=== PATIENT | male | born 1970 | race Caucasian/White ===

== ENCOUNTER 2017-03-07 05:50 | Day surgery (SDC) | payer OTHER ==
[~2017-03-07 05:50] MED LIST: KETO10TA2 PO; NORVASC10 MG; ULTRAM50 MG PO; VASOTEC20 M1
== END 2017-03-07 09:22 | disposition home or self-care (01) ==
LOC: AMB-ENDOS 05:50
DX: K64.2 Third degree hemorrhoids (principal); K92.1 Melena

== ENCOUNTER 2017-08-08 12:14 | Emergency (ER) | payer OTHER ==
[~2017-08-08] VITALS: Ht 165.1 cm; Wt 81.6 kg
[2017-08-08] MEDS ORDERED: VASOTEC10 MG NGT (15:24)
== END 2017-08-08 16:02 | disposition home or self-care (01) ==
LOC: ER 12:14
DX: I10 Essential (primary) hypertension (principal); R55 Syncope and collapse

== ENCOUNTER 2017-08-12 07:50 | Outpatient (CLI) | payer OTHER ==
[~2017-08-12 07:50] MED LIST changes: +VASOTEC10 MG NGT
== END 2017-08-12 09:29 | disposition home or self-care (01) ==
LOC: LAB 07:50
DX: I10 Essential (primary) hypertension (principal); Z12.5 Encounter for screening for malignant neoplasm of prostate; E78.2 Mixed hyperlipidemia

== ENCOUNTER 2018-06-16 14:15 | Outpatient (CLI) | payer OTHER | END 2018-06-16 16:44 | disposition home or self-care (01) | LOC: LAB 14:15 | DX: Z11.3 Encounter for screening for infections with a predominantly sexual mode of transmission (principal) ==

== ENCOUNTER 2019-02-18 13:01 | Emergency (ER) | payer OTHER ==
[~2019-02-18] VITALS: Ht 165.1 cm; Wt 79.4 kg
== END 2019-02-18 18:06 | disposition home or self-care (01) ==
LOC: ER 13:01
DX: R10.31 Right lower quadrant pain (principal)

== ENCOUNTER → 2019-04-09 12:10 | Outpatient (CLI) | payer OTHER | END | disposition home or self-care (01) | LOC: LAB 12:10 | DX: J11.1 Influenza due to unidentified influenza virus with other respiratory manifestations (principal) ==

== ENCOUNTER 2019-06-28 08:40 | Emergency (ER) | payer OTHER ==
[~2019-06-28] VITALS: Ht 165.1 cm; Wt 81.6 kg
== END 2019-06-28 16:07 | disposition home or self-care (01) ==
LOC: ER 08:40
DX: R10.13 Epigastric pain (principal); R10.31 Right lower quadrant pain

== ENCOUNTER → 2019-11-30 | Outpatient (CLI) | payer OTHER | END | disposition home or self-care (01) | LOC: PPH VACUNA | DX: Z23 Encounter for immunization (principal) ==

== ENCOUNTER → 2020-01-04 | Emergency (ER) | payer OTHER ==
[~2020-01-04] VITALS: Ht 165.1 cm; Wt 83.9 kg
== END | disposition home or self-care (01) ==
LOC: ER 08:55
DX: S62.634A Displaced fracture of distal phalanx of right ring finger, initial encounter for closed fracture (principal); W23.0XXA Caught, crushed, jammed, or pinched between moving objects, initial encounter; Y93.89 Activity, other specified; Y92.69 Other specified industrial and construction area as the place of occurrence of the external cause; Y99.8 Other external cause status

== ENCOUNTER 2020-08-22 15:48 | Outpatient (CLI) | payer OTHER | END 2020-08-22 15:55 | disposition home or self-care (01) | LOC: RAD 15:48 | PROVIDERS: ATTEND Orthopaedic Surgery | DX: M25.552 Pain in left hip (principal) ==

== ENCOUNTER 2020-09-20 06:41 | Emergency (ER) | payer OTHER ==
[~2020-09-20] VITALS: Ht 165.1 cm; Wt 79.4 kg
[2020-09-20] MEDS ORDERED: NORVASC (07:04)
[2020-09-20] MEDS ORDERED: CYCLOBENZAPRINE10 MG PO (11:52)
[2020-09-20] MEDS ORDERED: MEDROLPACK PO (11:52)
[2020-09-20] MEDS ORDERED: DICLOFENAC POTA50 MG PO (11:52)
[2020-09-20] MEDS ORDERED: ULTRAM50 MG PO (11:52)
== END 2020-09-20 13:31 | disposition home or self-care (01) ==
LOC: ER 06:41
DX: M51.36 Other intervertebral disc degeneration, lumbar region (principal); M48.061 Spinal stenosis, lumbar region without neurogenic claudication; M54.5 Low back pain

== ENCOUNTER → 2020-10-05 | Outpatient (CLI) | payer OTHER ==
[~2020-10-05] MED LIST changes: +CYCLOBENZAPRINE10 MG PO; +DICLOFENAC POTA50 MG PO; +MEDROLPACK PO; +NORVASC
== END | disposition home or self-care (01) ==
LOC: LAB 11:12
PROVIDERS: ATTEND Emergency Medicine Pediatric Emergency Medicine
DX: Z03.818 Encounter for observation for suspected exposure to other biological agents ruled out (principal)

== ENCOUNTER 2020-12-06 08:00 | Outpatient (CLI) | payer OTHER | END 2020-12-06 08:30 | disposition home or self-care (01) | LOC: PPH VACUNA 08:00 | PROVIDERS: ATTEND Emergency Medicine Pediatric Emergency Medicine | DX: Z23 Encounter for immunization (principal) ==

== ENCOUNTER → 2020-12-16 11:35 | Outpatient (CLI) | payer OTHER | END | disposition home or self-care (01) | LOC: LAB 11:35 | PROVIDERS: ATTEND Obstetrics & Gynecology | DX: D64.89 Other specified anemias (principal); N40.1 Benign prostatic hyperplasia with lower urinary tract symptoms; R89.1 Abnormal level of hormones in specimens from other organs, systems and tissues; E29.0 Testicular hyperfunction; E03.8 Other specified hypothyroidism; E78.49 Other hyperlipidemia; M81.6 Localized osteoporosis [Lequesne]; M83.3 Adult osteomalacia due to malnutrition ==

== ENCOUNTER 2021-05-02 17:15 | Outpatient (CLI) | payer OTHER | END 2021-05-02 17:25 | disposition home or self-care (01) | LOC: LAB 17:15 | PROVIDERS: ATTEND Anesthesiology Pain Medicine | DX: J03.90 Acute tonsillitis, unspecified (principal); A49.02 Methicillin resistant Staphylococcus aureus infection, unspecified site; Z20.818 Contact with and (suspected) exposure to other bacterial communicable diseases ==

== ENCOUNTER 2021-07-03 09:23 | Outpatient (CLI) | payer OTHER | END 2021-07-03 09:30 | disposition home or self-care (01) | LOC: LAB 09:23 | PROVIDERS: ATTEND Obstetrics & Gynecology | DX: N40.1 Benign prostatic hyperplasia with lower urinary tract symptoms (principal); R89.1 Abnormal level of hormones in specimens from other organs, systems and tissues; E29.0 Testicular hyperfunction; E03.8 Other specified hypothyroidism; D64.89 Other specified anemias; E55.9 Vitamin D deficiency, unspecified; E78.49 Other hyperlipidemia; M81.6 Localized osteoporosis [Lequesne] ==

== ENCOUNTER 2021-08-20 15:33 | Outpatient (CLI) | payer OTHER | END 2021-08-20 15:37 | disposition home or self-care (01) | LOC: LAB 15:33 | PROVIDERS: ATTEND Anesthesiology | DX: N64.89 Other specified disorders of breast (principal); N40.1 Benign prostatic hyperplasia with lower urinary tract symptoms; E78.49 Other hyperlipidemia ==

== ENCOUNTER → 2021-08-25 08:28 | Outpatient (CLI) | payer OTHER | END | disposition home or self-care (01) | LOC: LAB 08:28 | PROVIDERS: ATTEND Internal Medicine | DX: Z12.11 Encounter for screening for malignant neoplasm of colon (principal); I10 Essential (primary) hypertension; M54.50 Low back pain, unspecified; Z01.810 Encounter for preprocedural cardiovascular examination ==

== ENCOUNTER 2021-08-31 16:04 | Outpatient (CLI) | payer OTHER | END 2021-08-31 16:06 | disposition home or self-care (01) | LOC: LAB 16:04 | PROVIDERS: ATTEND Surgery | DX: Z20.822 Contact with and (suspected) exposure to COVID-19 (principal) ==

== ENCOUNTER 2021-09-11 15:34 | Outpatient (CLI) | payer OTHER | END 2021-09-11 15:36 | disposition home or self-care (01) | LOC: LAB 15:34 | PROVIDERS: ATTEND Anesthesiology Pain Medicine | DX: U09.9 Post COVID-19 condition, unspecified (principal) ==

== ENCOUNTER 2021-11-13 08:00 | Outpatient (CLI) | payer OTHER | END 2021-11-13 08:05 | disposition home or self-care (01) | LOC: PPH VACUNA 08:00 | PROVIDERS: ATTEND Emergency Medicine Pediatric Emergency Medicine | DX: Z23 Encounter for immunization (principal) ==

== ENCOUNTER 2021-12-08 07:39 | Outpatient (CLI) | payer OTHER | END 2021-12-08 07:40 | disposition home or self-care (01) | LOC: LAB 07:39 | PROVIDERS: ATTEND Internal Medicine | DX: I10 Essential (primary) hypertension (principal); M54.50 Low back pain, unspecified; Z01.810 Encounter for preprocedural cardiovascular examination ==

== ENCOUNTER 2022-05-29 05:45 | Day surgery (SDC) | payer OTHER ==
[2022-05-30] MEDS ORDERED: COZAAR100 MG PO (11:06)
[2022-05-30] MEDS ORDERED: CHILDREN'S ASPI81 MG (11:06)
[2022-05-30] MEDS ORDERED: TOPROL XL50 M1 PO (11:06)
== END 2022-05-29 10:10 | disposition home or self-care (01) ==
LOC: AMB-ENDOS 05:45
PROVIDERS: ATTEND Colon & Rectal Surgery
DX: Z86.010 Personal history of colon polyps (principal); R19.5 Other fecal abnormalities; K57.30 Diverticulosis of large intestine without perforation or abscess without bleeding; K64.0 First degree hemorrhoids

== ENCOUNTER 2022-05-30 10:59 | Emergency (ER) | payer OTHER ==
[~2022-05-30] VITALS: Ht 165.1 cm; Wt 82.6 kg
[2022-05-30] MEDS ORDERED: TOPROL XL50 M1 PO (11:06)
[2022-05-30] MEDS ORDERED: CHILDREN'S ASPI81 MG (11:06)
[2022-05-30] MEDS ORDERED: COZAAR100 MG PO (11:06)
== END 2022-05-30 16:02 | disposition home or self-care (01) ==
LOC: ER 10:59
DX: I10 Essential (primary) hypertension (principal)

== ENCOUNTER 2022-06-11 08:36 | Outpatient (CLI) | payer OTHER ==
[~2022-06-11 08:36] MED LIST changes: +CHILDREN'S ASPI81 MG; +COZAAR100 MG PO; +TOPROL XL50 M1 PO
== END 2022-06-11 09:01 | disposition home or self-care (01) ==
LOC: NUCLEAR 08:36
PROVIDERS: ATTEND Internal Medicine
DX: I11.9 Hypertensive heart disease without heart failure (principal); I34.89 Other nonrheumatic mitral valve disorders

== ENCOUNTER 2022-06-24 16:51 | Outpatient (CLI) | payer OTHER | END 2022-06-24 16:54 | disposition home or self-care (01) | LOC: LAB 16:51 | PROVIDERS: ATTEND Internal Medicine | DX: I10 Essential (primary) hypertension (principal); M54.59 Other low back pain ==

== ENCOUNTER 2022-07-15 12:00 | Outpatient (CLI) | payer OTHER | END 2022-07-15 12:07 | disposition home or self-care (01) | LOC: LAB 12:00 | DX: U07.1 COVID-19 (principal); B34.1 Enterovirus infection, unspecified ==

== ENCOUNTER → 2022-07-16 07:26 | Outpatient (CLI) | payer OTHER | END | disposition home or self-care (01) | LOC: NUCLEAR 07:00 | PROVIDERS: ATTEND Internal Medicine | DX: I11.0 Hypertensive heart disease with heart failure (principal); I50.22 Chronic systolic (congestive) heart failure ==

== ENCOUNTER 2022-07-20 08:21 | Outpatient (CLI) | payer OTHER | END 2022-07-20 08:24 | disposition home or self-care (01) | LOC: LAB 08:21 | PROVIDERS: ATTEND Internal Medicine | DX: I50.9 Heart failure, unspecified (principal); I20.8 Other forms of angina pectoris; I11.9 Hypertensive heart disease without heart failure; E78.2 Mixed hyperlipidemia; I25.10 Atherosclerotic heart disease of native coronary artery without angina pectoris ==

== ENCOUNTER 2022-08-03 09:05 | Outpatient (CLI) | payer OTHER | END 2022-08-03 09:13 | disposition home or self-care (01) | LOC: LAB 09:05 | PROVIDERS: ATTEND Anesthesiology | DX: I10 Essential (primary) hypertension (principal); R51.0 Headache with orthostatic component, not elsewhere classified; R06.02 Shortness of breath ==

== ENCOUNTER 2022-10-12 08:45 | Outpatient (CLI) | payer OTHER | END 2022-10-12 08:46 | disposition home or self-care (01) | LOC: LAB 08:45 | PROVIDERS: ATTEND Internal Medicine | DX: I10 Essential (primary) hypertension (principal); M54.59 Other low back pain; Z12.11 Encounter for screening for malignant neoplasm of colon; N40.1 Benign prostatic hyperplasia with lower urinary tract symptoms ==

== ENCOUNTER 2022-11-23 10:30 | Outpatient (CLI) | payer OTHER | END 2022-11-23 10:37 | disposition home or self-care (01) | LOC: LAB 10:30 | PROVIDERS: ATTEND Internal Medicine Cardiovascular Disease | DX: I11.9 Hypertensive heart disease without heart failure (principal); E78.2 Mixed hyperlipidemia; E11.9 Type 2 diabetes mellitus without complications; E03.9 Hypothyroidism, unspecified ==

== ENCOUNTER 2022-12-19 11:20 | Emergency (ER) | payer OTHER ==
[~2022-12-19] VITALS: Ht 165.1 cm; Wt 81.6 kg
== END 2022-12-19 12:24 | disposition home or self-care (01) ==
LOC: ER 11:20
DX: M54.16 Radiculopathy, lumbar region (principal); I10 Essential (primary) hypertension

== ENCOUNTER 2023-01-03 14:06 | Outpatient (CLI) | payer OTHER | END 2023-01-03 14:15 | disposition home or self-care (01) | LOC: RAD 14:06 | PROVIDERS: ATTEND Orthopaedic Surgery Orthopaedic Surgery of the Spine | DX: R22.31 Localized swelling, mass and lump, right upper limb (principal); M51.37 Other intervertebral disc degeneration, lumbosacral region ==

== ENCOUNTER 2023-01-07 09:25 | Emergency (ER) | payer OTHER ==
[~2023-01-07] VITALS: Ht 165.1 cm; Wt 83.9 kg
[2023-01-07] MEDS ORDERED: NORVASC2.5 M1 PO (09:39)
[2023-01-07] MEDS ORDERED: EZALLOR SPRINKLE5 MG PO (09:40)
[2023-01-07 10:35] LABS: HEMATOCRIT 42.6 % (39.0-48.0); HEMOGLOBIN 14.2 g/dL (13-16.00); MEAN CELL VOLUME 89.8 fL (80.0-100.00); MEAN CORPUSCULAR HGB CONC 33.4 g/dl (32.0-36.0); PLATELET COUNT 276 K/uL (150-450); RED BLOOD COUNT 4.74 M/uL (4.00-6.00); RED CELL DISTRIBUTION WIDTH 13.1 % (11.5-14.5)
[2023-01-07 11:07] LABS: INR 0.99; PARTIAL THROMBOPLASTIN TIME 27.9 SECONDS (22.0-34.0); PROTHROMBIN TIME 10.4 SECONDS (9.0-11.5)
[2023-01-07 11:25] LABS: ALBUMIN 4.1 gm/dL (3.4-5.0); BILIRUBIN TOTAL 0.41 mg/dL (0.3-1.2); CALCIUM 9.8 mg/dL (8.5-10.1); GFR 78.47; GLOBULINA 3.5 G/DL (2.4-3.5); POTASSIUM 3.45 mEq/L (3.5-5.1); TOTAL PROTEIN 7.6 gm/dL (6.4-8.2)
== END 2023-01-08 14:25 | disposition home or self-care (01) ==
LOC: ER 09:25
PROVIDERS: Emergency Medicine
DX: R41.82 Altered mental status, unspecified (principal); F41.0 Panic disorder [episodic paroxysmal anxiety]
CPT/HCPCS: 70552

== ENCOUNTER → 2023-02-08 08:12 | Outpatient (CLI) | payer OTHER ==
[~2023-02-08 08:12] MED LIST changes: +EZALLOR SPRINKLE5 MG PO; +NORVASC2.5 M1 PO
[2023-02-08 09:26] LABS: PH,URINE 6.5 (5.0-8.0); URINE APPEARANCE Clear; URINE BILIRRUBIN Negative (NEGATIVE); URINE BLOOD Negative; URINE COLOR Yellow; URINE GLUCOSE Negative (NEGATIVE); URINE LEUKOCYTE Negative; URINE NITRATE Negative; URINE PROTEIN Negative (NEGATIVE); URINE UROBILINOGEN 0.2 E.U./dl
[2023-02-08 09:27] LABS: HEMATOCRIT 41.5 % (39.0-48.0); HEMOGLOBIN 14.3 g/dL (13-16.00); MEAN CELL VOLUME 88.2 fL (80.0-100.00); MEAN CORPUSCULAR HEMOGLOBIN 30.4 pg (27.00-32.0); MEAN CORPUSCULAR HGB CONC 34.4 g/dl (32.0-36.0); PLATELET COUNT 250 K/uL (150-450); RED BLOOD COUNT 4.71 M/uL (4.00-6.00); RED CELL DISTRIBUTION WIDTH 13.5 % (11.5-14.5)
[2023-02-08 09:32] LABS: URINE BACTERIA 31.4 uL (0.0-1933); URINE EPITHELIAL CELLS 1.9 uL (0.0-38.8); URINE RBC 2.2 uL (0.0-20.8); URINE WBC 2.1 uL (0.0-23.2)
[2023-02-08 09:51] LABS: ALBUMIN 3.6 gm/dL (3.4-5.0); BILIRUBIN TOTAL 0.54 mg/dL (0.3-1.2); CALCIUM 9.1 mg/dL (8.5-10.1); CHOL HDL RATIO 3.2 (0-5.0); CREATININE SERUM 0.97 mg/dL (0.70-1.30); GFR 81.27; GLOBULINA 3.2 G/DL (2.4-3.5); POTASSIUM 3.47 mEq/L (3.5-5.1); TOTAL PROTEIN 6.8 gm/dL (6.4-8.2)
== END | disposition home or self-care (01) ==
LOC: LAB 08:12
PROVIDERS: ATTEND Emergency Medicine Pediatric Emergency Medicine
DX: I10 Essential (primary) hypertension (principal); M54.59 Other low back pain; E03.9 Hypothyroidism, unspecified; E78.9 Disorder of lipoprotein metabolism, unspecified

== ENCOUNTER 2023-03-21 08:20 | Emergency (ER) | payer OTHER ==
[~2023-03-21] VITALS: Ht 165.1 cm; Wt 81.6 kg
[2023-03-21 10:10] LABS: HEMATOCRIT 39.8 % (39.0-48.0); HEMOGLOBIN 13.5 g/dL (13-16.00); MEAN CELL VOLUME 89.5 fL (80.0-100.00); MEAN CORPUSCULAR HEMOGLOBIN 30.4 pg (27.00-32.0); PLATELET COUNT 300 K/uL (150-450); RED BLOOD COUNT 4.45 M/uL (4.00-6.00); RED CELL DISTRIBUTION WIDTH 13.1 % (11.5-14.5)
== END 2023-03-21 11:56 | disposition home or self-care (01) ==
LOC: ER 08:20
PROVIDERS: General Practice
DX: J00 Acute nasopharyngitis [common cold] (principal); Z20.822 Contact with and (suspected) exposure to COVID-19; I10 Essential (primary) hypertension

== ENCOUNTER → 2023-04-04 | Outpatient (CLI) | payer OTHER ==
[2023-04-04 07:55] LABS: HEMATOCRIT 40.8 % (39.0-48.0); HEMOGLOBIN 13.8 g/dL (13-16.00); MEAN CELL VOLUME 90.5 fL (80.0-100.00); MEAN CORPUSCULAR HEMOGLOBIN 30.6 pg (27.00-32.0); MEAN CORPUSCULAR HGB CONC 33.8 g/dl (32.0-36.0); PLATELET COUNT 292 K/uL (150-450); RED BLOOD COUNT 4.51 M/uL (4.00-6.00); RED CELL DISTRIBUTION WIDTH 13.3 % (11.5-14.5)
[2023-04-04 08:32] LABS: ALBUMIN 3.6 gm/dL (3.4-5.0); BILIRUBIN TOTAL 0.45 mg/dL (0.3-1.2); CALCIUM 9.5 mg/dL (8.5-10.1); CHOL HDL RATIO 3.9 (0-5.0); GFR 78.47; GLOBULINA 3.6 G/DL (2.4-3.5); POTASSIUM 3.61 mEq/L (3.5-5.1); TOTAL PROTEIN 7.2 gm/dL (6.4-8.2)
== END | disposition home or self-care (01) ==
LOC: LAB 06:54
PROVIDERS: ATTEND Surgery
DX: E78.5 Hyperlipidemia, unspecified (principal); I10 Essential (primary) hypertension

== ENCOUNTER 2023-06-04 10:20 | Outpatient (CLI) | payer OTHER | END 2023-06-04 10:30 | disposition home or self-care (01) | LOC: PPH VACUNA 10:20 | PROVIDERS: ATTEND Emergency Medicine Pediatric Emergency Medicine | DX: Z23 Encounter for immunization (principal) | CPT/HCPCS: 90653; G0008 ==

== ENCOUNTER 2023-10-02 15:35 | Outpatient (CLI) | payer OTHER ==
[2023-10-02 15:57] LABS: HEMATOCRIT 39.1 % (39.0-48.0); HEMOGLOBIN 13.3 g/dL (13-16.00); MEAN CELL VOLUME 87.1 fL (80.0-100.00); MEAN CORPUSCULAR HEMOGLOBIN 29.5 pg (27.00-32.0); MEAN CORPUSCULAR HGB CONC 33.9 g/dl (32.0-36.0); PLATELET COUNT 275 K/uL (150-450); RED BLOOD COUNT 4.49 M/uL (4.00-6.00); RED CELL DISTRIBUTION WIDTH 13.8 % (11.5-14.5)
[2023-10-02 16:34] LABS: ALBUMIN 3.9 gm/dL (3.4-5.0); BILIRUBIN TOTAL 0.4 mg/dL (0.3-1.2); CALCIUM 9.6 mg/dL (8.5-10.1); CHOL HDL RATIO 3.2 (0-5.0); CREATININE SERUM 1.02 mg/dL (0.70-1.30); GFR 76.4; GLOBULINA 3.5 G/DL (2.4-3.5); POTASSIUM 3.39 mEq/L (3.5-5.1); TOTAL PROTEIN 7.4 gm/dL (6.4-8.2); TSH 1.85 uIU/mL (0.358-3.74)
== END 2023-10-02 15:41 | disposition home or self-care (01) ==
LOC: LAB 15:35
PROVIDERS: ATTEND Internal Medicine Cardiovascular Disease
DX: I11.9 Hypertensive heart disease without heart failure (principal); E11.9 Type 2 diabetes mellitus without complications; E78.2 Mixed hyperlipidemia; E03.9 Hypothyroidism, unspecified

== ENCOUNTER 2023-11-25 15:10 | Outpatient (CLI) | payer OTHER ==
[~2023-11-25 15:10] MED LIST changes: +COZAAR50 MG PO; +LOSARTAN-HCTZ1 EAC1; +TOPROL XL25 M1
== END 2023-11-25 15:13 | disposition home or self-care (01) ==
LOC: LAB 15:10
DX: B19.10 Unspecified viral hepatitis B without hepatic coma (principal)

== ENCOUNTER 2024-01-19 06:03 | Outpatient (CLI) | payer OTHER ==
[2024-01-19 07:30] LABS: HEMATOCRIT 41.1 % (39.0-48.0); HEMOGLOBIN 14.1 g/dL (13-16.00); MEAN CELL VOLUME 87.1 fL (80.0-100.00); MEAN CORPUSCULAR HEMOGLOBIN 29.8 pg (27.00-32.0); MEAN CORPUSCULAR HGB CONC 34.2 g/dl (32.0-36.0); PLATELET COUNT 254 K/uL (150-450); RED BLOOD COUNT 4.72 M/uL (4.00-6.00); RED CELL DISTRIBUTION WIDTH 13.4 % (11.5-14.5)
[2024-01-19 07:31] LABS: PH,URINE 5.5 (5.0-8.0); URINE APPEARANCE Clear; URINE BILIRRUBIN Negative (NEGATIVE); URINE BLOOD Negative; URINE COLOR Yellow; URINE GLUCOSE Negative (NEGATIVE); URINE KETONE Negative (NEGATIVE); URINE LEUKOCYTE Negative; URINE NITRATE Negative; URINE PROTEIN Negative (NEGATIVE); URINE UROBILINOGEN 0.2 E.U./dl
[2024-01-19 07:36] LABS: URINE EPITHELIAL CELLS 0.9 uL (0.0-38.8); URINE RBC 0.6 uL (0.0-20.8)
[2024-01-19 08:12] LABS: ALBUMIN 3.8 gm/dL (3.4-5.0); BILIRUBIN TOTAL 0.33 mg/dL (0.3-1.2); CALCIUM 9.3 mg/dL (8.5-10.1); CHOL HDL RATIO 2.9 (0-5.0); CREATININE SERUM 0.9 mg/dL (0.70-1.30); GFR 88.27; GLOBULINA 3.2 G/DL (2.4-3.5); POTASSIUM 3.41 mEq/L (3.5-5.1)
== END 2024-01-19 06:04 | disposition home or self-care (01) ==
LOC: LAB 06:03
PROVIDERS: ATTEND Internal Medicine
DX: I10 Essential (primary) hypertension (principal); E03.9 Hypothyroidism, unspecified; E78.9 Disorder of lipoprotein metabolism, unspecified

== ENCOUNTER 2024-01-22 04:00 | Outpatient (CLI) | payer OTHER | END 2024-01-22 04:15 | disposition home or self-care (01) | LOC: PPH VACUNA 04:00 | PROVIDERS: ATTEND Emergency Medicine Pediatric Emergency Medicine | DX: Z23 Encounter for immunization (principal) ==

== ENCOUNTER → 2024-06-11 06:05 | Outpatient (CLI) | payer OTHER ==
[2024-06-11 06:54] LABS: HEMATOCRIT 41.4 % (39.0-48.0); MEAN CORPUSCULAR HEMOGLOBIN 29.4 pg (27.00-32.0); MEAN CORPUSCULAR HGB CONC 33.8 g/dl (32.0-36.0); PLATELET COUNT 261 K/uL (150-450); RED BLOOD COUNT 4.76 M/uL (4.00-6.00); RED CELL DISTRIBUTION WIDTH 13.5 % (11.5-14.5)
[2024-06-11 06:57] LABS: URINE APPEARANCE Clear; URINE BILIRRUBIN Negative (NEGATIVE); URINE BLOOD Negative; URINE COLOR Yellow; URINE GLUCOSE Negative (NEGATIVE); URINE KETONE Negative (NEGATIVE); URINE LEUKOCYTE Negative; URINE NITRATE Negative; URINE PROTEIN Negative (NEGATIVE); URINE UROBILINOGEN 0.2 E.U./dl
[2024-06-11 06:58] LABS: URINE BACTERIA 2.4 uL (0.0-1933); URINE EPITHELIAL CELLS 0.7 uL (0.0-38.8); URINE RBC 1.9 uL (0.0-20.8); URINE WBC 1.4 uL (0.0-23.2)
[2024-06-11 07:49] LABS: ALBUMIN 3.8 gm/dL (3.4-5.0); BILIRUBIN TOTAL 0.57 mg/dL (0.3-1.2); CALCIUM 9.3 mg/dL (8.5-10.1); CHOL HDL RATIO 2.9 (0-5.0); CREATININE SERUM 0.93 mg/dL (0.70-1.30); GFR 84.99; GLOBULINA 3.4 G/DL (2.4-3.5); POTASSIUM 3.83 mEq/L (3.5-5.1); PROSTATIC SPECIFIC ANTIGEN 3.47 NG/ML (0.010-4.00); T4 TOTAL 8.11 UG/DL (4.5-12.1); TOTAL PROTEIN 7.2 gm/dL (6.4-8.2); TSH 2.11 uIU/mL (0.358-3.74)
== END | disposition home or self-care (01) ==
LOC: LAB 06-09 10:34
PROVIDERS: ATTEND Internal Medicine
DX: I50.9 Heart failure, unspecified (principal); I11.9 Hypertensive heart disease without heart failure; E11.9 Type 2 diabetes mellitus without complications; E78.2 Mixed hyperlipidemia; E03.9 Hypothyroidism, unspecified; E78.9 Disorder of lipoprotein metabolism, unspecified; G47.30 Sleep apnea, unspecified; R06.81 Apnea, not elsewhere classified

== ENCOUNTER 2024-06-16 09:58 | Outpatient (CLI) | payer OTHER | END 2024-06-16 13:31 | disposition home or self-care (01) | LOC: MRI 09:58 | PROVIDERS: ATTEND Orthopaedic Surgery Orthopaedic Surgery of the Spine | DX: M50.00 Cervical disc disorder with myelopathy, unspecified cervical region (principal) | CPT/HCPCS: 72141 ==

== ENCOUNTER → 2024-10-07 06:03 | Outpatient (CLI) | payer OTHER ==
[2024-10-07 07:38] LABS: BASO % 0.6 % (0.1-1.2); EOS # 0.22 (0.04-0.54); EOS % 3.3 % (0.7-7.0); LYMPH # 1.83 (1.18-3.74); LYMPH % 27.7 % (19.3-53.1); MEAN PLATELET VOLUME 8.90 fl (9.4-12.4); MONO # 0.51 (0.24-0.82); MONO % 7.7 % (4.7-12.5); NEUT # 3.96 (1.56-6.13); NEUT % 59.9 % (34.0-71.1); RED CELL DISTRIBUTION WIDTH 12.7 % (11.6-14.4)
[2024-10-07 07:48] LABS: URINE APPEARANCE Clear; URINE BILIRRUBIN Negative (NEGATIVE); URINE BLOOD Negative; URINE COLOR Yellow; URINE GLUCOSE Negative (NEGATIVE); URINE KETONE Trace (NEGATIVE); URINE LEUKOCYTE Negative; URINE NITRATE Negative; URINE PROTEIN Trace (NEGATIVE); URINE UROBILINOGEN 1.0 E.U./dl
[2024-10-07 07:51] LABS: URINE BACTERIA 8.3 uL (0.0-1933)
[2024-10-07 08:00] LABS: URINE CAST 0.00 uL (0.0-1.40); URINE EPITHELIAL CELLS 1.2 uL (0.0-38.8); URINE RBC 1.1 uL (0.0-20.8); URINE WBC 1.6 uL (0.0-23.2)
[2024-10-07 08:28] LABS: ALT/SGPT 34.0 U/L (12-78); AST/SGOT 20.0 U/L (15-37); BILIRUBIN TOTAL 0.41 mg/dL (0.3-1.2); BUN CREA RATIO 27.0 (7.0-25.0); CHOL HDL RATIO 2.3 (0-5.0); CREATININE SERUM 0.96 mg/dL (0.70-1.30); GFR 81.62; GLOBULINA 3.1 G/DL (2.4-3.5); GLUCOSE FASTING 100.0 mg/dL (65-100); HDL 57.0 mg/dl (40-60); LDL 50.0 mg/dl (0-130); OSMOLALITY SERUM 288.0 MOSM/KG (275-295); T3 UPTAKE 32.0 % (33-40); T4 TOTAL 7.91 UG/DL (4.5-12.1); TSH 2.39 uIU/mL (0.358-3.74); VLDL 21.0 (0-39)
[2024-10-07 14:04] LABS: T3 TOTAL 1.78 ng/ml (0.846-2.02); VITAMIN D3 25 HYDROXY 58.68 ng/ml (30-120)
== END | disposition home or self-care (01) ==
LOC: LAB 06:03
PROVIDERS: ATTEND Internal Medicine
DX: I10 Essential (primary) hypertension (principal); E03.9 Hypothyroidism, unspecified; E78.9 Disorder of lipoprotein metabolism, unspecified; R06.81 Apnea, not elsewhere classified; I11.9 Hypertensive heart disease without heart failure; E78.2 Mixed hyperlipidemia

== ENCOUNTER 2024-11-18 10:16 | Emergency (ER) | payer OTHER ==
[~2024-11-18] VITALS: Ht 165.1 cm; Wt 83.9 kg
[2024-11-18 10:38] VITALS: BP 122/67; O2SAT 98
[2024-11-18 10:45] LABS: BASO % 0.6 % (0.1-1.2); EOS # 0.13 (0.04-0.54); EOS % 1.8 % (0.7-7.0); LYMPH # 2.06 (1.18-3.74); LYMPH % 28.7 % (19.3-53.1); MEAN PLATELET VOLUME 8.50 fl (9.4-12.4); MONO # 0.48 (0.24-0.82); MONO % 6.7 % (4.7-12.5); NEUT # 4.44 (1.56-6.13); NEUT % 61.9 % (34.0-71.1); RED CELL DISTRIBUTION WIDTH 12.8 % (11.6-14.4)
[2024-11-18 11:22] LABS: ALT/SGPT 30.0 U/L (12-78); AST/SGOT 24.0 U/L (15-37); BILIRUBIN TOTAL 0.54 mg/dL (0.3-1.2); BUN CREA RATIO 26.0 (7.0-25.0); CREATININE SERUM 0.87 mg/dL (0.70-1.30); GFR 91.44; GLOBULINA 3.3 G/DL (2.4-3.5); GLUCOSE FASTING 110.0 mg/dL (65-100); OSMOLALITY SERUM 287.0 MOSM/KG (275-295)
== END 2024-11-18 13:46 | disposition home or self-care (01) ==
LOC: ER 10:24
PROVIDERS: Emergency Medicine
DX: R42 Dizziness and giddiness (principal); I10 Essential (primary) hypertension

== ENCOUNTER 2024-12-23 11:05 | Outpatient (CLI) | payer OTHER | END 2024-12-23 11:06 | disposition home or self-care (01) | LOC: NUCLEAR 11:05 | PROVIDERS: ATTEND Internal Medicine | DX: I11.9 Hypertensive heart disease without heart failure (principal) ==

== ENCOUNTER → 2025-01-07 06:30 | Outpatient (CLI) | payer OTHER ==
[2025-01-07 07:33] LABS: BASO % 0.6 % (0.1-1.2); EOS # 0.19 (0.04-0.54); EOS % 2.8 % (0.7-7.0); LYMPH # 1.95 (1.18-3.74); LYMPH % 28.5 % (19.3-53.1); MEAN PLATELET VOLUME 8.70 fl (9.4-12.4); MONO # 0.56 (0.24-0.82); MONO % 8.2 % (4.7-12.5); NEUT # 4.09 (1.56-6.13); NEUT % 59.6 % (34.0-71.1); RED CELL DISTRIBUTION WIDTH 12.6 % (11.6-14.4)
[2025-01-07 07:41] LABS: URINE APPEARANCE Clear; URINE BILIRRUBIN Negative (NEGATIVE); URINE BLOOD Negative; URINE COLOR Yellow; URINE GLUCOSE Negative (NEGATIVE); URINE KETONE Negative (NEGATIVE); URINE LEUKOCYTE Negative; URINE NITRATE Negative; URINE PROTEIN Negative (NEGATIVE); URINE UROBILINOGEN 0.2 E.U./dl
[2025-01-07 07:45] LABS: URINE RBC 2.3 uL (0.0-20.8); URINE WBC 2.0 uL (0.0-23.2)
[2025-01-07 08:06] LABS: URINE BACTERIA 3.5 uL (0.0-1933); URINE CAST 0.00 uL (0.0-1.40); URINE EPITHELIAL CELLS 0.7 uL (0.0-38.8)
[2025-01-07 08:44] LABS: ALT/SGPT 36.0 U/L (12-78); AST/SGOT 22.0 U/L (15-37); BILIRUBIN TOTAL 0.47 mg/dL (0.3-1.2); BUN CREA RATIO 31.0 (7.0-25.0); CHOL HDL RATIO 3.7 (0-5.0); CREATININE SERUM 0.89 mg/dL (0.70-1.30); GFR 89.08; GLOBULINA 3.3 G/DL (2.4-3.5); GLUCOSE FASTING 103.0 mg/dL (65-100); HDL 44.0 mg/dl (40-60); LDL 93.0 mg/dl (0-130); OSMOLALITY SERUM 291.0 MOSM/KG (275-295); VLDL 27.0 (0-39)
[2025-01-07 12:25] LABS: ob NEGATIVE (NEGATIVE)
== END | disposition home or self-care (01) ==
LOC: LAB 01-06 09:32
PROVIDERS: ATTEND Internal Medicine
DX: E03.9 Hypothyroidism, unspecified (principal); E78.9 Disorder of lipoprotein metabolism, unspecified; I10 Essential (primary) hypertension; G47.30 Sleep apnea, unspecified; R06.81 Apnea, not elsewhere classified

== ENCOUNTER 2025-02-16 10:00 | Outpatient (CLI) | payer OTHER | END 2025-02-16 10:10 | disposition home or self-care (01) | LOC: PPH VACUNA 10:00 | PROVIDERS: ATTEND Emergency Medicine Pediatric Emergency Medicine | DX: Z23 Encounter for immunization (principal) ==